=== PATIENT | female | born 1955 | race Caucasian/White ===

== ENCOUNTER 2022-04-29 08:00 | Outpatient (CLI) | payer MEDICARE, OTHER ==
--- NOTE | 2022-05-02 15:19 | XRAY Report ---
PROCEDURE: Chest 2 View INDICATIONS: Cough for 2 weeks, Hx of asthma TECHNIQUE: 2 views of the chest are obtained. COMPARISON: None. FINDINGS: Heart size is normal. No pleural effusions nor pneumothoraces. No evidence of pneumonia nor edema. Os seous structures grossly unremarkable. IMPRESSION: No acute process. Reviewed by: Soila Leonard MD on 04/29/2022 7:28 PM PDT Approved by: Soila Leonard MD on 04/29/2022 7:28 PM PDT Station ID: [id number]
== END 2022-04-29 23:59 | disposition home or self-care (01) ==
LOC: LAB 08:00
PROVIDERS: ATTEND Physician Assistant Medical
DX: U07.1 COVID-19 (principal); R09.89 Other specified symptoms and signs involving the circulatory and respiratory systems; R05.1 Acute cough
CPT/HCPCS: 71046; U0004; 81514; 87491; 87591; 87661

== ENCOUNTER → 2022-04-29 | Outpatient (CLI) | payer MEDICARE, OTHER | LOC: LAB 08:00 | PROVIDERS: ATTEND Physician Assistant Medical | DX: R05.1 Acute cough (principal) ==

== ENCOUNTER 2023-02-21 09:53 | Outpatient (CLI) | payer MEDICARE, OTHER ==
[~2023-02-21 09:53] MED LIST: GADOBUTROL 10 MMOL/10 ML VIAL ONE
[2023-02-21] MEDS ORDERED: GADOBUTROL 10 MMOL/10 ML VIAL IVP ONE (11:32)
--- NOTE | 2023-02-25 10:09 | MRI Report ---
PROCEDURE: BRAIN W/WO INDICATIONS: CENTRAL RETINAL ARTERY OCCLUSION CONTRAST: GADAVIST 8.6ML TECHNIQUE: Noncontrast axial T1 spin echo, axial T2 fast spin echo, sagittal and axial FLAIR, coronal T2 fast sp in echo, axial gradient echo, axial diffusion and ADC through the brain. After the administration of contrast, axial and coronal T1 spin echo with fat saturation through the brain. COMPARISON: 12/15/2022 MRI. FINDINGS: Image quality: Excellent. CSF spaces: Basal cisterns are patent. No extra-axial fluid collections. Ventricles are normal in size and shape. Brain: No midline shift. No intracranial bleeds or masses. No abnormal intracranial enhancement. There is mild cerebral volume loss for age. There is minimal scattered periventricular white matter chronic small vessel ischemic change. The brainstem appears normal. Diffusion-weighted images demon strate no acute ischemic insults. No chronic ischemic insults. Normal intravascular flow voids are present. Skull and face: Calvarial marrow is normal in signal. Orbits appear normal. Sinuses: Sinuses and mastoids appear clear. IMPRESSION: 1. Mild volume loss. Minimal small vessel ischemic disease. 2. No acute process. No recent infarct. Reviewed by: Soila Leonard MD on 02/25/2023 9:12 AM PDT Approved by: Soila Leonard MD on 02/25/2023 9:12 AM PDT Station ID: [id number]
--- NOTE | 2023-02-25 10:09 | MRI Report ---
PROCEDURE: ANGIO HEAD WO INDICATIONS: CENTRAL RETINAL ARTERY OCCLUSION TECHNIQUE: Noncontrast axial 3-D [id number] MR angiogram, with 3-dimensional maximum intensity projection (M IP) reformats of the internal carotid arteries and posterior circulation then performed. COMPARISON: None. FINDINGS: Image quality: Excellent. Anterior circulation: Intracranial internal carotid arteries demonstrate normal size and intralumina l flow signal. The flow within the paired anterior cerebral arteries is normal and symmetric. The f low within the middle cerebral arteries is normal and symmetric. The anterior communicating artery i s seen. No stenoses, occlusions, or aneurysms. Posterior circulation: Visualized portions of the vertebral arteries demonstrate normal caliber, and join to form a normal appearing basilar artery. There is a moderate focal region of decreased flow within the P1 segment of the right posterior cerebral artery. The flow within the posterior cerebral arteries is otherwise normal and symmetric. No aneurysms. 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 Otherwise negative cerebral MR angiogra phy. Reviewed by: Soila Leonard MD on 02/25/2023 9:14 AM PDT Approved by: Soila Leonard MD on 02/25/2023 9:14 AM PDT Station ID: [id number]
== END 2023-02-21 09:54 | disposition home or self-care (01) ==
LOC: DI 09:53
PROVIDERS: ATTEND Psychiatry & Neurology Neurology
DX: I66.21 Occlusion and stenosis of right posterior cerebral artery (principal); H34.11 Central retinal artery occlusion, right eye
CPT/HCPCS: 70544; 70553; A9585